=== PATIENT | female | born 2000 | race Caucasian/White ===

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

== ENCOUNTER 2022-11-01 17:40 | Emergency (ER) | payer OTHER ==
[2022-11-01 18:48] LABS: Basophils % (A) 1 %; Eosinophils # (A) 0.2 k/uL (0-0.7); Eosinophils % (A) 2 %; HCT 44.2 % (34.0-46.0); HGB 15.2 gm/dL (11.4-16.0); Lymphocytes % (A) 21 %; MCHC 34.4 g/dL (31.0-37.0); MCV 93.1 fL (80.0-100.0); Monocytes # (A) 0.4 k/uL (0-1.0); Monocytes % (A) 4 %; Neutrophils # (A) 6.6 k/uL (1.3-7.7); Neutrophils % (A) 71 %; Platelet Count 274 k/uL (150-450); RBC 4.75 m/uL (3.80-5.40); RDW 11.7 % (11.5-15.5); WBC 9.3 k/uL (4.0-11.0)
[2022-11-01 18:57] LABS: Appearance,Urine Clear (Clear); Bilirubin,Urine Negative (Negative); Blood,Urine Moderate (Negative); Color,Urine Light Yellow; Glucose,Urine (UA) Negative (Negative); INR 0.9 (<1.2); Ketones,Urine Negative (Negative); Leukocyte Esterase,Urine Negative (Negative); Mucus,Urine Occasional /hpf; Nitrite,Urine Negative (Negative); Partial Thromboplastin Time 24.5 sec (22.0-30.0); Protein,Urine Negative (Negative); Prothrombin Time 10.1 sec (9.0-12.0); RBC,Urine 16 /hpf (0-5); Specific Gravity,Urine 1.025 (1.001-1.035); Squamous Epithelial Cell,Urine <1 /hpf (0-4); Urobilinogen,Urine <2.0 mg/dL (<2.0); WBC,Urine <1 /hpf (0-5)
[2022-11-01 19:06] LABS: African American GFR (CKD) >90 (>60 ml/min/1.73 sqM); Anion Gap 11 mmol/L; Blood Urea Nitrogen 14 mg/dL (7-17); Calcium 9.5 mg/dL (8.4-10.2); Carbon Dioxide 24 mmol/L (22-30); Chloride 103 mmol/L (98-107); Glucose 93 mg/dL (74-99); Non-African American GFR(CKD) >90 (>60 ml/min/1.73 sqM); Potassium 3.8 mmol/L (3.5-5.1); Sodium 138 mmol/L (137-145)
[2022-11-01 19:21] LABS: HCG,Quantitative Serum 300.4 mIU/mL
--- NOTE | 2022-11-01 19:21 | US ---
EXAMINATION TYPE: Transabdominal DATE OF EXAM: 11/01/2022 7:13 PM COMPARISON: NONE CLINICAL INDICATION: Female, 22 years old with history of approx 8w preg. spotting.; Pt states 8 week s pg and bleeding x 2 days. EXAM PERFORMED: Transvaginal (TV) and Transabdominal (TA) EXAM MEASUREMENTS: GESTATIONAL AGE / DATING Physician Established: Not yet established Dates by LMP: 09/10/22 (7 weeks/3 days) EDC: 06/17/23 Dates by First Scan: No previous this is first scan Dates by Current Scan for: No IUP seen at this time MATERNAL ANATOMY Uterus: 7.8 x 4.3 x 3.9cm Right Ovary: Not seen Left Ovary: 3.1 x 2.5 x 1.8cm Post CDS / Adnexa: wnl Presence of free fluid: No Presence of corpus luteal cyst: Not seen Presence of subchorionic bleed: No GESTATION / SURVEY CRL: Not seen MSD: Not seen IUP: No IUP seen at this time Date of LMP: 09/10/22 Beta HcG (if available): pending IMPRESSION: No evidence of intrauterine gestational sac. This can be seen in early , ectopic a nd spontaneous . Follow up pelvic ultrasound in 5-7 days and serial beta hCG studies are rosa mmended.
[2022-11-01 20:22] VITALS: PULSE 95; RESP 18
--- NOTE | 2022-11-01 21:17 | ED ---
General Adult HPI - General Chief complaint: Vaginal Bleeding Stated complaint: 8wks bleeding Time Seen by Provider: 11/01/22 18:11 Source: patient, RN notes reviewed, old records reviewed Mode of arrival: ambulatory Limitations: no limitations - History of Present Illness Initial comments: Patient is a 22-year-old female who presents emergency Department approximate 2 months complaining of vaginal bleeding. Vaginal bleeding has been ongoing for 1-2 days. May have had a clot in it as well. Intermittent abdominal cramping but currently no pain. Patient is . Has not followed up with [facility]. Denies any other acute complaints at this time. Presents for further evaluation at this time. Denies any weakness, lightheadedness. Denies abdominal pain, nausea, vomiting, diarrhea, constipation. No dysuria. No chest pain or shortness breath. - Related Data Home Medications Medication Instructions Recorded Confirmed Albuterol Inhaler [Ventolin Hfa 1 puff INHALATION DIRECTED PRN 03/02/21 03/02/21 Inhaler] Budesonide-Formot 160-4.5 Mcg 1 puff INHALATION BID 03/02/21 03/02/21 [Symbicort 160-4.5 Mcg Inhaler] Montelukast [Singulair] 10 mg PO HS 03/02/21 03/02/21 Previous Rx's Medication Instructions Recorded HYDROcodone/APAP 5-325MG [[place] 1 tab PO Q6HR PRN #18 tab 03/09/21 5-325] Allergies Allergy/AdvReac Type Severity Reaction Status Date / Time Penicillins Allergy Rash/Hives Verified 11/01/22 18:09 sulfamethoxazole Allergy Rash/Hives Verified 11/01/22 18:09 [From Bactrim] trimethoprim [From Bactrim] Allergy Rash/Hives Verified 11/01/22 18:09 Review of Systems ROS Statement: Those systems with pertinent positive or pertinent negative responses have been documented in the HPI. Review of Systems: CONST: Denies fever EYES: Denies blurry vision ENT: Denies nasal congestion C/V: Denies Chest pain RESP: Denies shortness of breath GI: Denies abdominal pain : Denies dysuria SKIN: Denies rash. MSK: Denies joint pain. NEURO: Denies headache ROS Other: All systems not noted in ROS Statement are negative. Past Medical History Past Medical History: Asthma History of Any Multi-Drug Resistant Organisms: None Reported Past Surgical History: Joint Replacement, Orthopedic Surgery Additional Past Surgical History / Comment(s): Nose, RIGHT KNEE Past Psychological History: No Psychological Hx Reported Smoking Status: Former smoker Past Alcohol Use History: None Reported Past Drug Use History: None Reported General Exam - General Exam Comments Initial Comments: General: Appears in no acute distress. HEAD: Normal with no signs of head trauma. EYES: PERRLA, EOMI, conjunctiva normal, no discharge. ENT: Hearing grossly intact, normal oropharynx. RESPIRATORY: Clear breath sounds bilaterally. No wheezes, rales, or rhonchi. C/V: Regular rate and rhythm. S1 and S2 auscultated,peripheral pulses 2+ and intact throughout ABD: Abd is soft, nontender, nondistended EXT:no obvious deformity SKIN: No rashes or lesions observed on exposed skin. NEURO: Alert and oriented 4. Limitations: no limitations Course Vital Signs 11/01/22 11/01/22 11/01/22 18:09 20:21 21:35 Temperature 97.8 F 98.1 F Pulse Rate 101 H 95 95 Respiratory 15 18 18 Rate Blood Pressure 133/77 124/72 122/73 O2 Sat by Pulse 100 98 98 Oximetry Medical Decision Making - Medical Decision Making Was pt. sent in by a medical professional or institution (SILVIA Healy, PHLEBOTOMY SUPERVISOR, urgent care, hospital, or usp...) When possible be specific @ -No Did you speak to anyone other than the patient for history (EMS, parent, family, police, friend...)? What history was obtained from this source @ -No Did you review nursing and triage notes (agree or disagree)? Why? @ -I reviewed and agree with nursing and triage notes Were old charts reviewed (outside hosp., previous admission, EMS record, old EKG, old radiological studies, urgent care reports/EKG's, usp records)? Report findings @ -No old charts were reviewed Differential Diagnosis (chest pain, altered mental status, abdominal pain women, abdominal pain men, vaginal bleeding, weakness, fever, dyspnea, syncope, headache, dizziness, GI bleed, back pain, seizure, CVA, palpatations, mental health, musculoskeletal)? @ -, dysfunctional uterine bleeding, threatened miscarriage, miscarriage. This list is not all inclusive. EKG interpreted by me (3pts min.). @ -None done X-rays interpreted by me (1pt min.). @ -None done CT interpreted by me (1pt min.). @ -None done U/S interpreted by me (1pt. min.). @ -Pelvic ultrasound reveals no obvious intrauterine . No evidence of gestational sac. Differential is broad and ranges from ectopic , too early . Radiology recommends repeat ultrasound in 1 week. What testing was considered but not performed or refused? (CT, X-rays, U/S, labs)? Why? @ -None What meds were considered but not given or refused? Why? @ -None Did you discuss the management of the patient with other professionals (pr ofessionals i.e. , PA, PHLEBOTOMY SUPERVISOR, lab, RT, psych nurse, marriage and family social worker, live in housekeeper, teacher, staff submarine warfare officer, adult protective caseworker)? Give summary @ -No Was smoking cessation discussed for >3mins.? @ -No Was critical care preformed (if so, how long)? @ -No Were there social determinants of health that impacted care today? How? (Homelessness, low income, unemployed, alcoholism, drug addiction, transport ation, low edu. Level, literacy, decrease access to med. care, senior care, rehab)? @ -No Was there de-escalation of care discussed even if they declined (Discuss DNR or withdrawal of care, Hospice)? DNR status @ -No What co-morbidities impacted this encounter? (DM, HTN, Smoking, COPD, CAD, Cancer, CVA, ARF, Chemo, Hep., AIDS, mental health diagnosis, sleep apnea, morbid obesity)? @ -None Was patient admitted / discharged? Hospital course, mention meds given and route, prescriptions, significant lab abnormalities, going to OR and other pertinent info. @ -Based on the patient's presentation and physical exam, presents with likely threatened miscarriage. We'll obtain basic labs, quantitative beta hCG, as well as a pelvic ultrasound. Vital signs within acceptable limits. No complaints at this time. Patiently in agreement with the plan. Patient's ultrasound shows no definitive intrauterine . Patient's labs remarkable for no evidence of coagulopathies or anemia. Blood type is A+. Quantitative beta hCG is 300. I discussed results with the patient. She requires trending of the beta hCG and she will be given a prescription to obtain a lab drawn one week as well as repeat ultrasound. She expressed understanding. She understands that her diag nosis officially as a threatened miscarriage but it is possible she may have already miscarried versus to early . She was in agreement with this plan. Will follow up with [facility] as she is already contacted. I instructed the patient to follow up with their PCP in the next 1-3 days. I explained that the patient should return to the emergency department if they experience any worsening symptoms. Strict return precautions were discussed with the patient. The patient expressed understanding of these instructions. I answered all questions that the patient had. The patient was discharged home in good condition with their prescriptions and follow up information. Undiagnosed new problem with uncertain prognosis? @ -No Drug Therapy requiring intensive monitoring for toxicity (Heparin, Nitro, Insulin, Cardizem)? @ -No Were any procedures done? @ -No Diagnosis/symptom? @ -Threatened miscarriage, Acute, or Chronic, or Acute on Chronic? @ -Acute Uncomplicated (without systemic symptoms) or Complicated (systemic symptoms)? @ -Uncomplicated Side effects of treatment? @ -No Exacerbation, Progression, or Severe Exacerbation? @ -No Poses a threat to life or bodily function? How? (Chest pain, [place], AL, pneumonia, PE, COPD, DKA, ARF, appy, cholecystitis, CVA, Diverticulitis, Homicidal, Suicidal, threat to staff... and all critical care pts) @ -No - Lab Data Result diagrams: 11/01/22 18:31 11/01/22 18:31 Lab Results 11/01/22 11/01/22 11/01/22 Range/Units 18:31 18:31 18:31 WBC 9.3 (4.0-11.0) k/uL RBC 4.75 (3.80-5.40) m/uL Hgb 15.2 (11.4-16.0) gm/dL Hct 44.2 (34.0-46.0) % MCV 93.1 (80.0-100.0) fL MCH 32.0 (25.0-35.0) pg MCHC 34.4 (31.0-37.0) g/dL RDW 11.7 (11.5-15.5) % Plt Count 274 (150-450) k/uL MPV 8.0 Neutrophils % 71 % Lymphocytes % 21 % Monocytes % 4 % Eosinophils % 2 % Basophils % 1 % Neutrophils # 6.6 (1.3-7.7) k/uL Lymphocytes # 2.0 (1.0-4.8) k/uL Monocytes # 0.4 (0-1.0) k/uL Eosinophils # 0.2 (0-0.7) k/uL Basophils # 0.0 (0-0.2) k/uL PT (9.0-12.0) sec INR (<1.2) APTT (22.0-30.0) sec Sodium 138 (137-145) mmol/L Potassium 3.8 (3.5-5.1) mmol/L Chloride 103 (98-107) mmol/L Carbon Dioxide 24 (22-30) mmol/L Anion Gap 11 mmol/L BUN 14 (7-17) mg/dL Creatinine 0.81 (0.52-1.04) mg/dL Est GFR (CKD-EPI)AfAm >90 (>60 ml/min/1.73 sqM) Est GFR (CKD-EPI)NonAf >90 (>60 ml/min/1.73 sqM) Glucose 93 (74-99) mg/dL Calcium 9.5 (8.4-10.2) mg/dL HCG, Quant 300.4 mIU/mL Urine Color Light Yellow Urine Appearance Clear (Clear) Urine pH 6.0 (5.0-8.0) Ur Specific [place] 1.025 (1.001-1.035) Urine Protein Negative (Negative) Urine Glucose (UA) Negative (Negative) Urine Ketones Negative (Negative) Urine Blood Moderate H (Negative) Urine Nitrite Negative (Negative) Urine Bilirubin Negative (Negative) Urine Urobilinogen <2.0 (<2.0) mg/dL Ur Leukocyte Esterase Negative (Negative) Urine RBC 16 H (0-5) /hpf Urine WBC <1 (0-5) /hpf Ur Squamous Epith Cells <1 (0-4) /hpf Urine Mucus Occasional H (None) /hpf Blood Type Blood Type Confirm Blood Type Recheck Bld Type Recheck Status Antibody Screen Spec Expiration Date 11/01/22 11/01/22 11/01/22 Range/Units 18:31 18:32 19:04 WBC (4.0-11.0) k/uL RBC (3.80-5.40) m/uL Hgb (11.4-16.0) gm/dL Hct (34.0-46.0) % MCV (80.0-100.0) fL MCH (25.0-35.0) pg MCHC (31.0-37.0) g/dL RDW (11.5-15.5) % Plt Count (150-450) k/uL MPV Neutrophils % % Lymphocytes % % Monocytes % % Eosinophils % % Basophils % % Neutrophils # (1.3-7.7) k/uL Lymphocytes # (1.0-4.8) k/uL Monocytes # (0-1.0) k/uL Eosinophils # (0-0.7) k/uL Basophils # (0-0.2) k/uL PT 10.1 (9.0-12.0) sec INR 0.9 (<1.2) APTT 24.5 (22.0-30.0) sec Sodium (137-145) mmol/L Potassium (3.5-5.1) mmol/L Chloride (98-107) mmol/L Carbon Dioxide (22-30) mmol/L Anion Gap mmol/L BUN (7-17) mg/dL Creatinine (0.52-1.04) mg/dL Est GFR (CKD-EPI)AfAm (>60 ml/min/1.73 sqM) Est GFR (CKD-EPI)NonAf (>60 ml/min/1.73 sqM) Glucose (74-99) mg/dL Calcium (8.4-10.2) mg/dL HCG, Quant mIU/mL Urine Color Urine Appearance (Clear) Urine pH (5.0-8.0) Ur Specific [place] (1.001-1.035) Urine Protein (Negative) Urine Glucose (UA) (Negative) Urine Ketones (Negative) Urine Blood (Negative) Urine Nitrite (Negative) Urine Bilirubin (Negative) Urine Urobilinogen (<2.0) mg/dL Ur Leukocyte Esterase (Negative) Urine RBC (0-5) /hpf Urine WBC (0-5) /hpf Ur Squamous Epith Cells (0-4) /hpf Urine Mucus (None) /hpf Blood Type A Positive Blood Type Confirm A Positive Blood Type Recheck No Previous Record Bld Type Recheck Status CABO Indicated Antibody Screen NEGATIVE Spec Expiration Date 11/04/20222303 Disposition Clinical Impression: , Threatened miscarriage Disposition: HOME SELF-CARE Condition: Good Instructions (If sedation given, give patient instructions): Threatened Miscarriage (ED) Is patient prescribed a controlled substance at d/c from ED?: No Referrals: Katie Szymanski MD [Primary Care Provider] - 1-2 days George Lainez MD [STAFF PHYSICIAN] - 1-2 days Time of Disposition: 20:55
[2022-11-01 21:49] VITALS: BP 122/73; TEMP 98.1
== END 2022-11-01 21:35 | disposition home or self-care (01) ==
LOC: EC 17:40
DX: O20.0 Threatened abortion (principal); O99.511 Diseases of the respiratory system complicating pregnancy, first trimester; J45.909 Unspecified asthma, uncomplicated; Z87.891 Personal history of nicotine dependence; Z79.51 Long term (current) use of inhaled steroids; Z79.899 Other long term (current) drug therapy; Z88.0 Allergy status to penicillin; Z88.1 Allergy status to other antibiotic agents; Z88.2 Allergy status to sulfonamides; Z3A.08 8 weeks gestation of pregnancy
CPT/HCPCS: 36415; 76801; 76817; 80048; 81001; 84702; 85025; 85610; 85730; 86850; 86900; 86901; 99284

== ENCOUNTER → 2023-09-11 | Outpatient (CLI) | payer OTHER ==
[2023-09-11 15:14] LABS: Basophils % (A) 0 %; Eosinophils # (A) 0.2 k/uL (0-0.7); Eosinophils % (A) 2 %; HCT 42.9 % (34.0-46.0); HGB 14.3 gm/dL (11.4-16.0); Lymphocytes # (A) 1.7 k/uL (1.0-4.8); Lymphocytes % (A) 17 %; MCH 32.3 pg (25.0-35.0); MCHC 33.4 g/dL (31.0-37.0); MCV 96.7 fL (80.0-100.0); Monocytes # (A) 0.3 k/uL (0-1.0); Monocytes % (A) 3 %; Neutrophils # (A) 7.6 k/uL (1.3-7.7); Neutrophils % (A) 77 %; Platelet Count 231 k/uL (150-450); RBC 4.44 m/uL (3.80-5.40); RDW 11.8 % (11.5-15.5); WBC 9.8 k/uL (3.8-10.6)
[2023-09-11 15:46] LABS: Total Eosinophil Count 177 #EOS/uL (150-300)
[2023-09-11 18:31] LABS: NRBC Per 100 WBC 0 X 10*3/uL (0.00-0.01)
== END | disposition home or self-care (01) ==
LOC: LABWHC1 13:44
PROVIDERS: ATTEND Internal Medicine
DX: J45.50 Severe persistent asthma, uncomplicated (principal)
CPT/HCPCS: 36415; 82785; 85008; 85025

== ENCOUNTER 2024-04-28 15:54 | Inpatient (IN) | payer OTHER ==
[2024-04-28] MEDS: DINOPROSTONE 10 MG INSERT.ER VAGINAL ONE (18:59)
[2024-04-28] MEDS ORDERED: NALBUPHINE 10 MG/ML (10 ML MDV) IV PRN (19:01)
--- NOTE | 2024-04-28 19:04 | P.HPOB ---
History of Present Illness H&P Date: 04/28/24 Chief Complaint: IUP at 39-5/7 weeks, SGA This is a 24-year-old -0-1-0 at 39-5/7 weeks that presents to labor and delivery for induction of labor secondary to SGA. Patient has been receiving care which has been complicated by diagnosis of small for gestational age. Patient has had routine testing. Patient notes good movement, denies vaginal bleeding or contractions. On blood work this patient is a blood type of Review of Systems Constitutional: Denies chills, Denies fatigue, Denies fever Ears, nose, mouth and throat: Denies headache Cardiovascular: Reports leg edema Respiratory: Reports cough with sputum, Denies dyspnea Gastrointestinal: Reports constipation, Reports diarrhea, Reports nausea, Reports vomiting Genitourinary: Reports Past Medical History Past Medical History: Asthma History of Any Multi-Drug Resistant Organisms: None Reported Past Surgical History: Joint Replacement, Orthopedic Surgery Additional Past Surgical History / Comment(s): Nose, RIGHT KNEE Past Anesthesia/Blood Transfusion Reactions: No Reported Reaction Past Psychological History: No Psychological Hx Reported Smoking Status: Former smoker Past Alcohol Use History: None Reported Past Drug Use History: None Reported - Past Family History Mother Family Medical History: No Reported History Medications and Allergies Home Medications Medication Instructions Recorded Confirmed Type Albuterol Inhaler [Ventolin Hfa 1 puff INHALATION DIRECTED PRN 03/02/21 04/28/24 History Inhaler] Budesonide-Formot 160-4.5 Mcg 1 puff INHALATION BID 03/02/21 04/28/24 History [Symbicort 160-4.5 Mcg Inhaler] Fexofenadine HCl [Carmen Allergy] 1 tab PO DAILY 04/28/24 04/28/24 History Vit No.179/Iron/Folic 1 tab PO DAILY 04/28/24 04/28/24 History [ Tablet] Allergies Allergy/AdvReac Type Severity Reaction Status Date / Time Penicillins Allergy Rash/Hives Verified 04/28/24 16:16 sulfamethoxazole Allergy Rash/Hives Verified 04/28/24 16:16 [From Bactrim] trimethoprim [From Bactrim] Allergy Rash/Hives Verified 04/28/24 16:16 Exam Osteopathic Statement: *. No significant issues noted on an osteopathic structural exam other than those noted in the History and Physical/Consult. Vital Signs Temp Pulse Resp BP Pulse Ox 04/28/24 16:15 97.9 F 123 H 16 126/66 99 Intake and Output 04/28/24 04/28/24 04/28/24 06:59 14:59 22:59 Other: Weight 74.843 kg Targeted physical exam is performed this date General Is well-nourished well- developed female in no acute distress, breathing is nonlabored, heart has a regular rhythm, abdomen is gravid, on cervical exam she is 1/50/-2 station vertex presentation, Cervidil is placed without difficulty. heart tones noted be category 1 and she is not yoly. Assessment and Plan (1) Term Current Visit: Yes Status: Acute Code(s): Z34.90 - ENCNTR FOR SUPRVSN OF NORMAL , UNSP, UNSP TRIMESTER SNOMED Code(s): 49799417 (2) SGA (small for gestational age), , affecting care of mother, antepartum Current Visit: Yes Status: Acute Code(s): O36.5990 - MATERN CARE FOR OTH OR SUSP POOR FETL GRTH, UNSP TRI, UNSP SNOMED Code(s): 911713904 Plan: 24-year-old G2, P0 at 39-5/7 weeks presents for induction of labor. Patient is admitted to labor and delivery and Cervidil is without difficulty. Options for analgesia are discussed including Nubain and epidural. Continuous monitoring through the night Clear liquids as tolerated.
[2024-04-29] MEDS ORDERED: miSOPROStoL 200 MCG TAB RECTAL PRN (04:29)
[2024-04-29] MEDS ORDERED: OXYTOCIN 10 UNIT/ML 1 ML VIAL IM PRN (04:29)
[2024-04-29] MEDS ORDERED: CARBOPROST TROMETHAMINE 250 MCG/ML 1 ML AMP IM PRN (04:29)
[2024-04-29] MEDS ORDERED: TERBUTALINE 1 MG/ML VIAL SQ PRN (04:29)
[2024-04-29] MEDS ORDERED: miSOPROStoL 200 MCG TAB PO PRN (04:29)
[2024-04-29] MEDS ORDERED: METHYLERGONOVINE 0.2 MG/ML 1 ML AMP IM PRN (04:29)
[2024-04-29] MEDS ORDERED: TRANEXAMIC 1,000 MG/100ML-NACL 1,000 MG in EMPTY BAG 1 BAG IV PRN (04:29)
[2024-04-29 06:05] LABS: Basophils % (A) 0 %; Eosinophils # (A) 0.1 k/uL (0-0.7); Eosinophils % (A) 1 %; HCT 42.3 % (34.0-46.0); Lymphocytes # (A) 2.1 k/uL (1.0-4.8); Lymphocytes % (A) 18 %; MCH 32.5 pg (25.0-35.0); MCHC 33.2 g/dL (31.0-37.0); MCV 97.9 fL (80.0-100.0); Mean Platelet Volume 7.9; Monocytes # (A) 0.7 k/uL (0-1.0); Monocytes % (A) 6 %; Neutrophils # (A) 8.6 k/uL (1.3-7.7); Neutrophils % (A) 74 %; Platelet Count 235 k/uL (150-450); RBC 4.32 m/uL (3.80-5.40); RDW 12.3 % (11.5-15.5); WBC 11.6 k/uL (3.8-10.6)
[2024-04-29] MEDS: LACTATED RINGERS 1,000 ML IV SCH (06:07)
[2024-04-29] MEDS: OXYTOCIN 30 UNITS/500 ML NS 30 UNIT in SALINE 1 500ML.BAG IV SCH (06:09)
[2024-04-29] MEDS ORDERED: fentaNYL (PF) 50 MCG/ML 5 ML AMP ONE (11:16)
[2024-04-29] MEDS ORDERED: SODIUM CHLORIDE 0.9% 250 ML BAG ONE (11:16)
[2024-04-29] MEDS ORDERED: ROPIVACAINE 5 MG/ML 30 ML VIAL ONE (11:16)
[2024-04-29] MEDS: LIDOCAINE 0.5% (PF) 5 MG/ML (50 ML SDV) SQ PRN (19:02)
[2024-04-29] MEDS ORDERED: diphenhydrAMINE 25 MG CAP PO PRN (19:10)
[2024-04-29] MEDS ORDERED: diphenhydrAMINE 50 MG/ML 1 ML VIAL IVP PRN ×2 (19:10)
[2024-04-29] MEDS ORDERED: HYDROCORTISONE 2.5% RECTAL CREAM 30 GM TUBE RECTAL PRN (19:10)
[2024-04-29] MEDS ORDERED: diphenhydrAMINE 50 MG CAP PO PRN (19:10)
[2024-04-29] MEDS ORDERED: LANOLIN CREAM 1 GM TUBE TOPICAL PRN (19:10)
[2024-04-29] MEDS ORDERED: SIMETHICONE 80 MG CHEWABLE PO PRN (19:10)
[2024-04-29] MEDS ORDERED: ZOLPIDEM 5 MG TAB PO PRN (19:10)
[2024-04-29] MEDS ORDERED: BENZOCAINE/MENTHOL SPRAY 1 GM/SPRAY AEROSOL TOPICAL PRN (19:10)
[2024-04-29] MEDS ORDERED: ALBUTEROL NEBULIZED 2.5 MG/3 ML INHALATION PRN (19:12)
--- NOTE | 2024-04-29 19:15 | P.PROBDLV ---
Vaginal Delivery Note - . Vaginal Delivery Note: Date of service 04/29/2024 Findings viable female delivered at 1854, weight of 6 pounds 10.5 ounces This is a 24-year-old 2 para 0-0-1-0 that presented to labor and delivery at 40-0/7 weeks for scheduled Cervidil induction last evening. Patient was admitted and Cervidil induction was begun. Patient did well through the night noting some contractions to the evening. Patient underwent amniotomy this morning and Pitocin augmentation of labor was begun. Patient did become uncomfortable and request epidural. Epidural was placed without difficulty by the anesthesia department. Patient made good progress toward complete dilation. Once completely dilated patient began pushing and had a normal spontaneous vaginal delivery of a viable female infant at 1854, weight of 6 pounds 10.5 ounces. After 2-minute delay the umbilical cord was doubly clamped and cut. Spontaneous cry was noted at . Placenta was delivered spontaneously intact with a three-vessel cord being noted. On inspection the patient's vaginal vault a first-degree midline vaginal laceration was appreciated. This was injected with lidocaine and repaired in the usual fashion with 3-0 Rapide. Bladder was drained for 50 cc of clear urine. Uterus was noted to be boggy with a gush of blood, uterus firmed with fundal massage. Estimated blood loss 200 cc Patient and infant tolerated delivery well and are resting comfortably. All counts noted correct x 2 at the end of the delivery.
[2024-04-29] MEDS: IBUPROFEN IV 800 MG in SODIUM CHLORIDE 0.9% 250 ML IV ONE (19:39)
[2024-04-29] MEDS ORDERED: ACETAMINOPHEN TAB 500 MG TAB PO SCH (20:00)
[2024-04-29] MEDS: SENNOSIDES-DOCUSATE SODIUM 1 EACH TAB PO SCH (22:35)
[2024-04-30] MEDS: ACETAMINOPHEN TAB 500 MG TAB PO SCH (00:21)
[2024-04-30] MEDS: IBUPROFEN 800 MG TAB PO SCH (04:18)
--- NOTE | 2024-04-30 08:26 | P.DS ---
Providers Date of admission: 04/28/24 15:54 Expected date of discharge: 04/30/24 Attending physician: Stephany Acevedo Primary care physician: Stated None - Discharge Diagnosis(es) (1) Term Current Visit: Yes Status: Acute (2) SGA (small for gestational age), , affecting care of mother, antepartum Current Visit: Yes Status: Acute (3) Status post normal vaginal delivery Current Visit: Yes Status: Acute (4) Obstetrical laceration, first degree Current Visit: Yes Status: Acute Hospital Course: This is a 24-year-old G2 now P1 011 that presented to labor and delivery at 40- 0/7 weeks for induction of labor. Patient had been receiving routine care which had been complicated by diagnosis of small for gestational age. Reassuring testing throughout the . For full details on this patient please see the dictated history and physical. Patient was admitted and Cervidil induction of labor was begun. Patient did well through the night, amniotomy was performed in the morning along with Pitocin augmentation of labor. Patient did receive an epidural during the labor process for analgesia. Patient made good progress toward complete dilation. Once completely dilated patient began pushing and had a normal spontaneous vaginal delivery of viable female at 1854, weight of 6 pounds 10.3 ounces or 3020 g. Patient did sustain a first-degree vaginal laceration. Patient's course has been uneventful. In this day #1 she is ambulating and voiding without occultly. She is tolerating regular diet without nausea or vomiting. She is breast-feeding with some difficulty. Overall she is feeling well and is considering discharge home later this morning. Patient Condition at Discharge: Good Plan - Discharge Summary New Discharge Prescriptions: No Action Vit No.179/Iron/Folic [ Tablet] 1 tab PO DAILY Fexofenadine HCl [Carmen Allergy] 1 tab PO DAILY Budesonide-Formot 160-4.5 Mcg [Symbicort 160-4.5 Mcg Inhaler] 1 puff INHALATION BID Albuterol Inhaler [Ventolin Hfa Inhaler] 1 puff INHALATION DIRECTED PRN PRN Reason: Shortness Of Breath Or Wheezing Discharge Medication List Albuterol Inhaler [Ventolin Hfa Inhaler] 1 puff INHALATION DIRECTED PRN 03/02/21 [History] Budesonide-Formot 160-4.5 Mcg [Symbicort 160-4.5 Mcg Inhaler] 1 puff INHALATION BID 03/02/21 [History] Fexofenadine HCl [Carmen Allergy] 1 tab PO DAILY 04/28/24 [History] Vit No.179/Iron/Folic [ Tablet] 1 tab PO DAILY 04/28/24 [History] Follow up Appointment(s)/Referral(s): Stephany Acevedo DO [Doctor of Osteopathic Medicine] - 06/09/24 8:45 am Patient Instructions/Handouts: Vaginal Delivery (DC), Vaginal Delivery (GEN) Activity/Diet/Wound Care/Special Instructions: Baths or intercourse until 6 weeks . [id number] ibuprofen 600 mg or 3 tablets every 6 hours as needed for pain. Patient is to call the office and make a routine visit for 6 weeks. Should she have any issues prior to this appointment she is urged to call the office. Discharge Disposition: HOME SELF-CARE
[2024-04-30] MEDS: PRENATAL VIT-IRON-FOLIC ACID 1 EACH TABLET PO SCH (09:08)
[2024-04-30] MEDS: SYMBICORT 160-4.5 MCG INHALER INHALATION SCH (09:53)
[2024-04-30 17:41] VITALS: RESP 18
[2024-04-30 17:42] VITALS: BP 128/83; PULSE 79; TEMP 98.3
== END 2024-04-30 19:50 | disposition home or self-care (01) | DRG 560 ==
LOC: 4FBP 15:54
PROVIDERS: ADMIT Obstetrics & Gynecology Obstetrics; ATTEND Obstetrics & Gynecology Obstetrics
PROC: 3E0P7VZ Introduction of Hormone into Female Reproductive, Via Natural or Artificial Opening (ICD-10-PCS; 2024-04-28)
PROC: 0HQ9XZZ Repair Perineum Skin, External Approach (ICD-10-PCS; principal; 2024-04-29)
PROC: 10E0XZZ Delivery of Products of Conception, External Approach (ICD-10-PCS; principal; 2024-04-29)
PROC: 10907ZC Drainage of Amniotic Fluid, Therapeutic from Products of Conception, Via Natural or Artificial Opening (ICD-10-PCS; principal; 2024-04-29)
DX: O36.5930 Maternal care for other known or suspected poor fetal growth, third trimester, not applicable or unspecified (principal); O99.52 Diseases of the respiratory system complicating childbirth; J45.909 Unspecified asthma, uncomplicated; O70.0 First degree perineal laceration during delivery; Z87.891 Personal history of nicotine dependence; Z79.51 Long term (current) use of inhaled steroids; Z88.0 Allergy status to penicillin; Z88.2 Allergy status to sulfonamides; Z3A.39 39 weeks gestation of pregnancy; Z37.0 Single live birth
CPT/HCPCS: 85025; 86850; 86900; 86901; 94640